=== PATIENT | male | born 1940 | race Caucasian/White ===

== ENCOUNTER → 2017-02-10 | Outpatient (CLI) | payer MEDICARE, OTHER ==
[~2017-02-10] MED LIST: AMLO5TAB2 PO; ASCO10004 PO; ASPI-621 PO; ASPI325T4 PO; ATOR10TA PO; ENOX100S5 SQ; EZET10TA3 PO; FENO145T32 PO; FINA5TAB PO; GLUC1TAB27 PO; HYDR-3138 PO; LEVO50TA PO; LOSA100T6 PO; METO100T5 PO; MULT-516 PO; OMEG1CAP6 PO; PEG31POW2 PO; PRAS10TA4 PO; TRIA1CAP PO; [UNRECOGNIZED DRUG - OTHER] PO
== END | disposition home or self-care (01) ==
LOC: CVU 12:52
PROVIDERS: ATTEND Internal Medicine Cardiovascular Disease
DX: I71.4 Abdominal aortic aneurysm, without rupture (principal)
CPT/HCPCS: 93978

== ENCOUNTER → 2018-02-17 | Outpatient (CLI) | payer MEDICARE, BC ==
[~2018-02-17] MED LIST changes: +ASPI325T17 PO; -ASPI325T4 PO; +EZET10TA18 PO; -EZET10TA3 PO; -HYDR-3138 PO; +HYDR-3237 PO; -PEG31POW2 PO; +PEG31POW3 PO
== END | disposition home or self-care (01) ==
LOC: CVU 12:41
PROVIDERS: ATTEND Internal Medicine Cardiovascular Disease
DX: I71.4 Abdominal aortic aneurysm, without rupture (principal); E78.5 Hyperlipidemia, unspecified; I10 Essential (primary) hypertension; I25.10 Atherosclerotic heart disease of native coronary artery without angina pectoris; I48.91 Unspecified atrial fibrillation; J44.9 Chronic obstructive pulmonary disease, unspecified; Z86.79 Personal history of other diseases of the circulatory system; Z95.1 Presence of aortocoronary bypass graft; Z99.81 Dependence on supplemental oxygen
CPT/HCPCS: 93978

== ENCOUNTER 2019-02-09 11:12 | Outpatient (CLI) | payer MEDICARE, BC ==
[~2019-02-09 11:12] MED LIST changes: +AMLO-150 PO; -AMLO5TAB2 PO; -ASPI-621 PO; +ASPI81TA45 PO; +LOSA100T14 PO; -LOSA100T6 PO
== END 2019-02-09 23:59 | disposition home or self-care (01) ==
LOC: CVU 11:12
PROVIDERS: ATTEND Internal Medicine Cardiovascular Disease
DX: I08.3 Combined rheumatic disorders of mitral, aortic and tricuspid valves (principal); I65.23 Occlusion and stenosis of bilateral carotid arteries; J44.9 Chronic obstructive pulmonary disease, unspecified; I48.91 Unspecified atrial fibrillation; I10 Essential (primary) hypertension; E78.5 Hyperlipidemia, unspecified
CPT/HCPCS: 93306; 93880; 93922; 93978

== ENCOUNTER 2020-03-20 13:55 | Outpatient (CLI) | payer MEDICARE, OTHER ==
[~2020-03-20 13:55] MED LIST changes: -EZET10TA18 PO; +EZET10TA70 PO
== END 2020-03-20 23:59 | disposition home or self-care (01) ==
LOC: CFH 13:55 → RAD 23:59
PROVIDERS: ATTEND Internal Medicine Cardiovascular Disease
DX: I71.4 Abdominal aortic aneurysm, without rupture (principal)
CPT/HCPCS: 93978

== ENCOUNTER → 2021-02-21 | Outpatient (CLI) | payer MEDICARE, OTHER ==
[~2021-02-21] MED LIST changes: +ASCO100018 PO; -ASCO10004 PO
== END | disposition home or self-care (01) ==
LOC: CVU 14:01
PROVIDERS: ATTEND Internal Medicine Cardiovascular Disease
DX: I08.3 Combined rheumatic disorders of mitral, aortic and tricuspid valves (principal); I65.23 Occlusion and stenosis of bilateral carotid arteries; I71.4 Abdominal aortic aneurysm, without rupture; I25.10 Atherosclerotic heart disease of native coronary artery without angina pectoris; I11.9 Hypertensive heart disease without heart failure
CPT/HCPCS: 93306; 93880; 93978